=== PATIENT | female | born 1930 | race Caucasian/White ===

== ENCOUNTER 2018-03-23 14:47 | Inpatient (IN) | payer MEDICARE, OTHER ==
[2018-03-23 15:48] LABS: ADD MAN DIFF? NO
[2018-03-23 15:57] LABS: BASO # 0.1 x10^3/uL (0.0-0.2); BASO % 1 % (0-3); EOS # 0.2 x10^3/uL (0.0-0.7); EOS % 2 % (0-3); HEMOGLOBIN 13.1 g/dL (12.0-15.5); LYMPH # 1.4 x10^3/uL (1.0-4.8); LYMPH % 16 % (24-48); MEAN CORPUSCULAR HEMOGLOBIN 30 pg (25-35); MEAN CORPUSCULAR HGB CONC 34 g/dL (31-37); MEAN CORPUSCULAR VOLUME 90 fL (79-100); MONO % 12 % (0-9); NEUT % 70 % (31-73); PLATELET COUNT 298 x10^3/uL (140-400); RED BLOOD COUNT 4.35 x10^6/uL (3.50-5.40); RED CELL DISTRIBUTION WIDTH 13.7 % (11.5-14.5); WHITE BLOOD COUNT 8.6 x10^3/uL (4.0-11.0)
[2018-03-23 16:03] LABS: ANION GAP 7 (6-14); BLOOD UREA NITROGEN 19 mg/dL (7-20); BUN/CREATININE RATIO 17 (6-20); CALCIUM 8.2 mg/dL (8.5-10.1); CARBON DIOXIDE 32 mmol/L (21-32); CHLORIDE 101 mmol/L (98-107); CREATININE 1.1 mg/dL (0.6-1.0); GFR 46.8; GLUCOSE 189 mg/dL (70-99); POTASSIUM 3.1 mmol/L (3.5-5.1); SODIUM 140 mmol/L (136-145)
[2018-03-23 16:09] LABS: ALBUMIN 2.8 g/dL (3.4-5.0); ALBUMIN/GLOBULIN RATIO 0.8 (1.0-1.7); ALK PHOS 97 U/L (46-116); ALT (SGPT) 14 U/L (14-59); AST (SGOT) 14 U/L (15-37); TOTAL BILIRUBIN 0.3 mg/dL (0.2-1.0); TOTAL PROTEIN 6.4 g/dL (6.4-8.2)
[2018-03-23] MEDS: POTASSIUM CHLORIDE 20 MEQ/15 ML ORAL LIQUID. PO ×2 (17:45→18:36)
[2018-03-23] MEDS: MORPHINE ER 30 MG TABLET.ER PO (18:30)
[2018-03-23] MEDS: MORPHINE SULFATE 4 MG/ML DISP.SYRIN. IV (18:35)
[2018-03-23] MEDS: ONDANSETRON PF 4 MG/2 ML VIAL. IV (18:46)
[2018-03-24 05:27] LABS: ADD MAN DIFF? NO
[2018-03-24 05:35] LABS: BASO # 0.1 x10^3/uL (0.0-0.2); BASO % 1 % (0-3); EOS # 0.2 x10^3/uL (0.0-0.7); EOS % 3 % (0-3); HEMATOCRIT 35.8 % (36.0-47.0); HEMOGLOBIN 12.2 g/dL (12.0-15.5); LYMPH # 1.7 x10^3/uL (1.0-4.8); LYMPH % 23 % (24-48); MEAN CORPUSCULAR HEMOGLOBIN 30 pg (25-35); MEAN CORPUSCULAR HGB CONC 34 g/dL (31-37); MEAN CORPUSCULAR VOLUME 89 fL (79-100); MONO # 0.9 x10^3/uL (0.0-1.1); MONO % 13 % (0-9); NEUT # 4.5 x10^3uL (1.8-7.7); NEUT % 61 % (31-73); PLATELET COUNT 253 x10^3/uL (140-400); RED BLOOD COUNT 4.04 x10^6/uL (3.50-5.40); RED CELL DISTRIBUTION WIDTH 13.4 % (11.5-14.5); WHITE BLOOD COUNT 7.5 x10^3/uL (4.0-11.0)
[2018-03-24 06:47] LABS: ANION GAP 6 (6-14); BLOOD UREA NITROGEN 19 mg/dL (7-20); CALCIUM 8.3 mg/dL (8.5-10.1); CARBON DIOXIDE 31 mmol/L (21-32); CHLORIDE 104 mmol/L (98-107); GFR 52.2; GLUCOSE 110 mg/dL (70-99); SODIUM 141 mmol/L (136-145)
[2018-03-24] MEDS: NYSTATIN 100,000 UNITS/ML 5 ML ORAL.SUSP. PO ×3 (14:30→20:46)
[2018-03-24] MEDS: OXYBUTYNIN CHLORIDE 5 MG TABLET PO ×2 (14:41→20:45)
[2018-03-24] MEDS: ASPIRIN CHEWABLE 81 MG TABLET. PO (14:41)
[2018-03-24] MEDS: amLODIPine BESYLATE 5 MG TABLET PO (14:41)
[2018-03-24] MEDS: metFORMIN 500 MG TABLET PO (14:41)
[2018-03-24] MEDS: FUROSEMIDE 20 MG TABLET PO (14:41)
[2018-03-24] MEDS: POLYVINYL ALCOHOL 1.4% OPHTH SOLUTION 15ML BOTTLE. OU (14:42)
[2018-03-24] MEDS: CARVEDILOL 6.25 MG TABLET. PO (17:24)
[2018-03-24] MEDS: MORPHINE ER 15 MG TABLET.ER PO (20:46)
[2018-03-25] MEDS: metFORMIN 500 MG TABLET PO (08:13)
[2018-03-25] MEDS: OXYBUTYNIN CHLORIDE 5 MG TABLET PO ×3 (08:14→20:25)
[2018-03-25] MEDS: CARVEDILOL 6.25 MG TABLET. PO ×2 (08:14→17:20)
[2018-03-25] MEDS: FUROSEMIDE 20 MG TABLET PO (08:15)
[2018-03-25] MEDS: amLODIPine BESYLATE 5 MG TABLET PO (08:15)
[2018-03-25] MEDS: ASPIRIN CHEWABLE 81 MG TABLET. PO (08:15)
[2018-03-25] MEDS: NYSTATIN 100,000 UNITS/ML 5 ML ORAL.SUSP. PO (08:21)
[2018-03-25] MEDS: POTASSIUM CHLORIDE 20 MEQ/15 ML ORAL LIQUID. PEG (11:20)
[2018-03-25 13:19] LABS: THYROID STIM HORMONE (TSH) 0.772 uIU/mL (0.358-3.74)
[2018-03-25 13:42] LABS: ADD MAN DIFF? NO
[2018-03-25 13:49] LABS: BASO % 1 % (0-3); EOS # 0.1 x10^3/uL (0.0-0.7); EOS % 2 % (0-3); HEMATOCRIT 36.2 % (36.0-47.0); HEMOGLOBIN 12.4 g/dL (12.0-15.5); LYMPH # 1.4 x10^3/uL (1.0-4.8); LYMPH % 16 % (24-48); MEAN CORPUSCULAR HEMOGLOBIN 31 pg (25-35); MEAN CORPUSCULAR HGB CONC 34 g/dL (31-37); MEAN CORPUSCULAR VOLUME 89 fL (79-100); MONO # 0.8 x10^3/uL (0.0-1.1); MONO % 10 % (0-9); NEUT # 6.3 x10^3uL (1.8-7.7); NEUT % 72 % (31-73); PLATELET COUNT 255 x10^3/uL (140-400); RED BLOOD COUNT 4.04 x10^6/uL (3.50-5.40); RED CELL DISTRIBUTION WIDTH 13.9 % (11.5-14.5); WHITE BLOOD COUNT 8.6 x10^3/uL (4.0-11.0)
[2018-03-25 14:08] LABS: ANION GAP 5 (6-14); BLOOD UREA NITROGEN 18 mg/dL (7-20); CALCIUM 8.4 mg/dL (8.5-10.1); CARBON DIOXIDE 33 mmol/L (21-32); CHLORIDE 103 mmol/L (98-107); CREATININE 0.9 mg/dL (0.6-1.0); GLUCOSE 111 mg/dL (70-99); POTASSIUM 4.3 mmol/L (3.5-5.1); SODIUM 141 mmol/L (136-145)
[2018-03-25 14:14] LABS: CREATINE KINASE 16 U/L (26-192)
[2018-03-25 14:58] LABS: MAGNESIUM 1.8 mg/dL (1.8-2.4)
[2018-03-25] MEDS: MORPHINE ER 15 MG TABLET.ER PO (20:25)
[2018-03-25 20:45] LABS: VITAMIN-B12 440 pg/mL (247-911)
[2018-03-26 01:42] LABS: BILIRUBIN,URINE NEGATIVE (NEG); CLARITY,URINE CLEAR; COLOR,URINE YELLOW; GLUCOSE,URINE NEGATIVE (NEG); NITRITE,URINE NEGATIVE (NEG); PROTEIN,URINE NEGATIVE (NEG-TRACE); UROBILINOGEN,URINE 0.2 mg/dL (0.2 mg/dL)
[2018-03-26 01:47] LABS: RBC,URINE OCC /HPF (0-2)
[2018-03-26 01:48] LABS: BACTERIA,URINE 0 /HPF (0-FEW); SQUAMOUS EPITHELIAL CELL,UR FEW /LPF
[2018-03-26] MEDS: OXYBUTYNIN CHLORIDE 5 MG TABLET PO ×2 (08:34→13:32)
[2018-03-26] MEDS: ASPIRIN CHEWABLE 81 MG TABLET. PO (08:34)
[2018-03-26] MEDS: metFORMIN 500 MG TABLET PO (08:34)
[2018-03-26] MEDS: CARVEDILOL 6.25 MG TABLET. PO ×2 (08:34→17:32)
[2018-03-26] MEDS ORDERED: cloNIDine HCL 0.1 MG TABLET PO (09:00)
[2018-03-26] MEDS: amLODIPine BESYLATE 5 MG TABLET PO (09:09)
[2018-03-26] MEDS: CALCIUM CARBONATE 500 MG TABLET PO (12:11)
[2018-03-26] MEDS: GADOBUTROL 7.5 MMOL/7.5 ML VIAL IV (15:00)
[2018-03-27] MEDS ORDERED: CHOLECALCIFEROL (VITAMIN D3) 5,000 UNIT CAPSULE PO (09:00)
== END 2018-03-26 18:21 | disposition home health service (06) | DRG 206 ==
LOC: ER 14:47 → 5 NORTH 16:34
DX: S22.31XA Fracture of one rib, right side, initial encounter for closed fracture (principal); R64 Cachexia; J90 Pleural effusion, not elsewhere classified; E44.0 Moderate protein-calorie malnutrition; G62.9 Polyneuropathy, unspecified; E11.9 Type 2 diabetes mellitus without complications; Z68.1 Body mass index [BMI] 19.9 or less, adult; W19.XXXA Unspecified fall, initial encounter; K44.9 Diaphragmatic hernia without obstruction or gangrene; E55.9 Vitamin D deficiency, unspecified; E78.5 Hyperlipidemia, unspecified; E86.0 Dehydration; E87.6 Hypokalemia; I10 Essential (primary) hypertension; I25.10 Atherosclerotic heart disease of native coronary artery without angina pectoris; R62.7 Adult failure to thrive; Z66 Do not resuscitate; Z82.49 Family history of ischemic heart disease and other diseases of the circulatory system; Z85.3 Personal history of malignant neoplasm of breast; Z86.718 Personal history of other venous thrombosis and embolism; Z86.73 Personal history of transient ischemic attack (TIA), and cerebral infarction without residual deficits; Z90.12 Acquired absence of left breast and nipple; Z90.49 Acquired absence of other specified parts of digestive tract; Z92.21 Personal history of antineoplastic chemotherapy; Z92.3 Personal history of irradiation; Z96.649 Presence of unspecified artificial hip joint; M19.90 Unspecified osteoarthritis, unspecified site; Z88.0 Allergy status to penicillin; Z88.8 Allergy status to other drugs, medicaments and biological substances; Z91.041 Radiographic dye allergy status; F11.90 Opioid use, unspecified, uncomplicated; Y93.89 Activity, other specified; Y92.89 Other specified places as the place of occurrence of the external cause; Y99.8 Other external cause status; Z87.81 Personal history of (healed) traumatic fracture; R26.9 Unspecified abnormalities of gait and mobility
CPT/HCPCS: 36415; 70450; 70551; 71101; 71250; 72125; 74176; 80048; 80053; 81001; 82306; 82550; 82607; 83735; 84443; 85025; 92610-GN; 93005; 96374; 96375; 97110-GP; 97116-GP; 97161-GP; 97166-GO; 99285; 99285-25; J1956; J2270; J2405